=== PATIENT | female | born 1975 | race Caucasian/White ===

== ENCOUNTER 2025-02-18 10:53 | Emergency (ER) | payer BC ==
[~2025-02-18] VITALS: Ht 180.3 cm; Wt 77.3 kg
[2025-02-18 10:58] VITALS: TEMP 98.5
--- NOTE | 2025-02-18 11:29 | RADIOLOGY REPORT ---
CLINICAL INDICATION: FOOT/ANKLE PAIN AFTER PLAYING PICKLEBALL TECHNIQUE: 3 radiographic views of the left ankle were obtained. Comparison: None FINDINGS/IMPRESSION: There is no evidence of acute fracture or dislocation. The visualized joint space is well maintained. The alignment is anatomical. There is no radiopaque foreign body.
[2025-02-18 11:47] VITALS: BP 133/89; PULSE 70; RESP 18; O2SAT 99
--- NOTE | 2025-02-18 12:40 | Physician Documentation ---
History of Present Illness ~ Chief Complaint: Foot pain Stated Complaint: L ANKLE PAIN Time Seen by MD: 11:59 HPI This is a 50-year-old female with a history of plantar fasciitis who presents with one day of worsened left foot pain onset last night while playing pickleball, patient reports that she was taking some running steps when she felt a pop. Patient reports pain is worse with weight-bearing. Patient reports no other acute symptoms or concerns. Patient reports no loss of feeling to the foot. Tetanus witin 5 years: No Medication Reconciliation Allergies: Coded Allergies: No Known Allergies (Unverified , 02/18/25) Past Medical History Past Medical History: *MUSCULOSKELETAL* (Plantar fasciitis) Review of Systems ROS As stated above in the HPI, otherwise all systems are reviewed and negative. Physical Exam Vital Signs: Temperature: 98.5, Source: Temporal, Heart Rate: 70, Respiratory Rate: 18, BP: 133/89, Pulse Oximetry: 99, Weight: 77.270 Oxygen Flow Rate: 0 Physical Exam VITALS: Reviewed and as above. GENERAL: Alert, nontoxic appearing, no apparent distress. RESPIRATORY: No increased work of breathing, no respiratory distress, speaking in full clear sentences MUSCULOSKELETAL: Plantar aspect of left chlorine cell tender to palpation, no swelling, no ecchymosis, last pedal pulse intact, brisk capillary refill to left foot, sensation intact Progress Results/Orders Results/Orders Orders - ROBSON GUERRERO Ortho Orders (02/18/25 12:40) Vital Signs 02/18/25 02/18/25 10:58 11:47 Temp 98.5 Pulse 84 70 Resp 18 18 B/P (MAP) 164/101 133/89 (104) Pulse Ox 99 99 O2 Flow Rate 0 0 EKG/XRAY/CT/US/VASC/MRI Bone/Soft Tissue X-Ray (Ext.) : Additional Comment CLINICAL INDICATION: FOOT/ANKLE PAIN AFTER PLAYING PICKLEBALL TECHNIQUE: 3 radiographic views of the left ankle were obtained. Comparison: None FINDINGS/IMPRESSION: There is no evidence of acute fracture or dislocation. The visualized joint space is well maintained. The alignment is anatomical. There is no radiopaque foreign body. Electronically Signed by:RODNEY SANTOS MD Date & Time: 02/18/25 1126 Dictated by: RODNEY SANTOS MD Dictation date and time: 02/18/25 1100 I have reviewed and agree with the radiology report. I have reviewed and interpreted the imaging as: No fracture or dislocation Medical Decision Making Findings This 50-year-old female presented with pain to the plantar aspect of her left foot onset while playing a sport, physical exam demonstrated tenderness to the plantar aspect of the mid foot without evidence of swelling, ecchymosis, erythema or deformity and imaging did not demonstrate evidence of fracture or dislocation. Foot is neurovascularly intact with sensation and pedal pulse intact and brisk capillary refill. Suspect soft tissue injury. Patient to be placed on crutches and utilize rest, ice, compression, and elevation to treat in jury. Remainder of physical exam benign patient is otherwise well reporting no other acute symptoms or concerns and is appropriate for outpatient follow up. Follow up instructions, return to care precautions, and home care instructions discussed with the patient who verbalized understanding. Foot Diff Dx:Considerations: Include: Abrasion, Cellulitis, Contusion, Dislocation, Fracture-metatarsal, Fracture-phalynx, Fracture-tarsal, Gout, Laceration, Neurovascular injury Departure Time of Disposition: 12:40 Disposition: 01 HOME / SELF CARE / HOMELESS Impression: Primary Impression: Foot pain Qualified Codes: M79.672 - Pain in left foot Condition: Improved Discharge Instructions: RICE Therapy for Routine Care of Injuries Additional Instructions: Please use the crutches to rest your foot, please see the attached home care instructions. You may use ibuprofen and or Tylenol as needed for pain as directed by [id number] packaging. Please follow up with your primary care provider in the next few days for possible referral to an orthopedist or podi atrist. Please return to the emergency department for any new or worsening concerning symptoms. Referrals: NO PRIMARY CARE PROVIDER (PCP) Education Educated: Patient Educated regarding: diagnosis, prognosis, need for follow up Signature Scribe Signature: No scribe Attestation: The note accurately reflects work and decisions made by me.IKER Garrett 02/18/25 20:42 ROBSON GUERRERO Feb 18, 2025 12:40
== END 2025-02-18 12:52 | disposition home or self-care (01) ==
LOC: ER 10:54
DX: M79.672 Pain in left foot (principal); M25.572 Pain in left ankle and joints of left foot
CPT/HCPCS: 73610; 99283